=== PATIENT | female | born 1965 | race Caucasian/White ===

== ENCOUNTER 2017-12-10 15:34 | Emergency (ER) | payer OTHER, MEDICAID ==
[2017-12-10] MEDS: BENOXINATE/FLUORESCEIN DROPS OP (17:53)
== END 2017-12-10 18:09 | disposition home or self-care (01) ==
LOC: FTE 15:34
DX: S05.91XA Unspecified injury of right eye and orbit, initial encounter (principal); X58.XXXA Exposure to other specified factors, initial encounter; Y92.9 Unspecified place or not applicable
CPT/HCPCS: 99283; Z7502